=== PATIENT | male | born 1985 | race American Indian/Alaskan Native ===

== ENCOUNTER 2019-02-26 22:21 | Emergency (ER) | payer MEDICAID ==
[~2019-02-26] VITALS: Ht 203.2 cm; Wt 77.0 kg
[2019-02-26 22:23] VITALS: BP 135/93
== END 2019-02-26 23:42 | disposition left against medical advice (07) ==
LOC: ER 22:22
DX: L08.89 Other specified local infections of the skin and subcutaneous tissue (principal); Z53.21 Procedure and treatment not carried out due to patient leaving prior to being seen by health care provider

== ENCOUNTER 2019-02-28 18:21 | Emergency (ER) | payer MEDICAID ==
[~2019-02-28] VITALS: Ht 165.1 cm; Wt 79.5 kg
[2019-02-28] MEDS ORDERED: CEPH500C5 PO (18:59)
[2019-02-28] MEDS ORDERED: SULF1TAB49 PO (18:59)
[2019-02-28 19:11] VITALS: BP 120/80
== END 2019-02-28 19:18 | disposition home or self-care (01) ==
LOC: ER 18:22
DX: L02.411 Cutaneous abscess of right axilla (principal); Z79.899 Other long term (current) drug therapy
CPT/HCPCS: 99283

== ENCOUNTER 2021-02-27 16:54 | Emergency (ER) | payer MEDICAID ==
[~2021-02-27] VITALS: Ht 170.2 cm; Wt 88.6 kg
[2021-02-27 17:18] VITALS: BP 135/95
[2021-02-27] MEDS ORDERED: AMOX-117 PO (17:25)
[2021-02-27] MEDS ORDERED: HYDR-3972 PO (17:25)
[2021-02-27] MEDS ORDERED: IBUP-1986 PO (17:25)
== END 2021-02-27 17:36 | disposition home or self-care (01) ==
LOC: ER 16:54
DX: K08.89 Other specified disorders of teeth and supporting structures (principal)
CPT/HCPCS: 99283

== ENCOUNTER 2022-11-23 14:17 | Emergency (ER) | payer MEDICAID ==
[~2022-11-23] VITALS: Ht 170.2 cm; Wt 86.0 kg
[~2022-11-23 14:17] MED LIST: IBUP-1986 PO
[2022-11-23 15:01] VITALS: BP 140/92
[2022-11-23] MEDS ORDERED: SULF1TAB49 PO (15:06)
[2022-11-23] MEDS ORDERED: IBUP-1986 PO (15:07)
== END 2022-11-23 16:04 | disposition home or self-care (01) ==
LOC: ER 14:18
DX: L02.01 Cutaneous abscess of face (principal); F12.10 Cannabis abuse, uncomplicated; Z79.899 Other long term (current) drug therapy
CPT/HCPCS: 99283